=== PATIENT | female | born 1935 ===

== ENCOUNTER 2017-12-09 08:55 | Day surgery (SDC) | payer OTHER ==
[2017-12-09] MEDS ORDERED: ULTRACET PO (14:00)
== END 2017-12-09 15:35 | disposition home or self-care (01) ==
LOC: AMB-ENDOS 08:55 → EDBD 08:55 → AMB-ENDOS 15:00
DX: C20 Malignant neoplasm of rectum (principal); D12.8 Benign neoplasm of rectum

== ENCOUNTER 2018-01-01 06:43 | Day surgery (SDC) | payer OTHER ==
[~2018-01-01 06:43] MED LIST: METROPOLOL PO; ULTRACET PO; [UNRECOGNIZED DRUG - OTHER] PO
[2018-01-01] MEDS ORDERED: ULTRACET PO (09:17)
== END 2018-01-01 10:50 | disposition home or self-care (01) ==
LOC: CIR.AMB 06:43
DX: C20 Malignant neoplasm of rectum (principal)
CPT/HCPCS: 36561; C1751